=== PATIENT | female | born 1985 | race Caucasian/White ===

== ENCOUNTER 2017-08-28 15:50 | Emergency (ER) | payer OTHER ==
[2017-08-28] MEDS ORDERED: PROAIR HFA0.09 MG/AC IH (16:10)
[2017-08-28] MEDS ORDERED: ZITHROMAX 250M250 MG PO (16:10)
[2017-08-28 16:33] VITALS: BP 126/84
== END 2017-08-28 16:34 | disposition home or self-care (01) ==
LOC: ED 15:50
DX: J20.9 Acute bronchitis, unspecified (principal); F17.200 Nicotine dependence, unspecified, uncomplicated

== ENCOUNTER → 2017-09-18 | Day surgery (SDC) | payer OTHER ==
[2017-08-28 16:33] VITALS: BP 126/84
[~2017-09-18] MED LIST: PROAIR HFA0.09 MG/AC IH; ZITHROMAX 250M250 MG PO
== END ==
LOC: MSO 07:22
DX: R68.81 Early satiety (principal); R10.12 Left upper quadrant pain; J45.909 Unspecified asthma, uncomplicated; F17.210 Nicotine dependence, cigarettes, uncomplicated
CPT/HCPCS: 00731; J2704; J7120

== ENCOUNTER → 2017-09-21 | Outpatient (CLI) | payer OTHER ==
[2017-08-28 16:33] VITALS: BP 126/84
== END ==
LOC: RAD 09:10
DX: R10.2 Pelvic and perineal pain (principal)

== ENCOUNTER → 2018-06-18 | Outpatient (CLI) | payer SELFPAY | LOC: RAD 07:06 | DX: N64.53 Retraction of nipple (principal) ==

== ENCOUNTER → 2019-09-16 | Outpatient (CLI) | payer BC | LOC: LAB 12:48 | DX: M79.10 Myalgia, unspecified site (principal); J02.9 Acute pharyngitis, unspecified; R05 Cough; R06.02 Shortness of breath; Z20.828 Contact with and (suspected) exposure to other viral communicable diseases ==

== ENCOUNTER 2019-10-14 16:43 | Emergency (ER) | payer BC ==
[~2019-10-14] VITALS: Ht 170.2 cm; Wt 77.3 kg
[2019-10-14 18:55] LABS: HEMATOCRIT 41.2 % (37.0-47.0); HEMOGLOBIN 13.5 g/dL (12.5-16.0); MEAN CELL VOLUME 91 fl (78-100); MEAN CORPUSCULAR HEMOGLOBIN 30 pg (27-31); MEAN CORPUSCULAR HGB CONC 33 g/dL (33-37); PLATELET COUNT 174 K/mm3 (130-400); RED BLOOD COUNT 4.54 M/mm3 (4.10-5.30); RED CELL DISTRIBUTION WIDTH 12.3 % (11.5-14.5); WHITE BLOOD COUNT 4.7 K/mm3 (4.8-10.8)
[2019-10-14 19:03] LABS: ALBUMIN 4.5 g/dL (3.5-5.0); BAND 4 % (0-10); LYMPHOCYTE 13 % (20-51); MONOCYTE 14 % (3-10); NEUTROPHILS 65 % (42-75); POTASSIUM 3.6 mmol/L (3.5-5.1)
[2019-10-14 19:04] LABS: CALCIUM 9.4 mg/dL (8.3-10.5)
[2019-10-14 19:06] LABS: TOTAL PROTEIN 7.7 g/dL (6.4-8.3)
[2019-10-14 19:07] LABS: TOTAL BILIRUBIN 0.3 mg/dL (0.2-1.2)
[2019-10-14 19:11] LABS: D-DIMER 0.1 mg/L FEU (0.15-0.50); PARTIAL THROMBOPLASTIN TIME 22.3 SECONDS (21.0-32.0); PROTHROMBIN TIME 9.5 SECONDS (9.0-12.0)
[2019-10-14 19:34] LABS: URINE APPEARANCE CLEAR; URINE BILIRUBIN NEGATIVE (NEGATIVE); URINE BLOOD NEGATIVE (NEGATIVE); URINE COLOR YELLOW; URINE GLUCOSE NEGATIVE (NEGATIVE); URINE KETONE NEGATIVE (NEGATIVE); URINE LEUKOCYTE ESTERASE NEGATIVE (NEGATIVE); URINE NITRATE NEGATIVE (NEGATIVE); URINE PROTEIN(semi-quant) TRACE mg/dL (NEGATIVE); URINE UROBILINOGEN NORMAL (NORMAL); URINE WBC 0-1 /hpf (0-3)
[2019-10-14] MEDS ORDERED: PREDNISONE20 MG PO ×2 (20:56→20:58)
[2019-10-14] MEDS ORDERED: AZITHROMYCIN 250MGPK PO (20:57)
[2019-10-14 21:27] VITALS: BP 131/85
== END 2019-10-14 21:30 | disposition home or self-care (01) ==
LOC: ED 16:43
PROVIDERS: Nurse Practitioner
DX: U07.1 COVID-19 (principal); F17.210 Nicotine dependence, cigarettes, uncomplicated; Z90.89 Acquired absence of other organs

== ENCOUNTER 2019-10-28 21:56 | Emergency (ER) | payer BC ==
[~2019-10-28] VITALS: Ht 170.2 cm; Wt 80.8 kg
[~2019-10-28 21:56] MED LIST changes: +AZITHROMYCIN 250MGPK PO; +PREDNISONE20 MG PO
[2019-10-28 22:34] LABS: EOS # 0.1 (0.04-0.40); EOS % 1.6 % (1.0-5.0); HEMATOCRIT 38.7 % (37.0-47.0); HEMOGLOBIN 12.7 g/dL (12.5-16.0); LYMPH# 2.3 (1.50-4.00); MEAN CELL VOLUME 90 fl (78-100); MEAN CORPUSCULAR HEMOGLOBIN 30 pg (27-31); MEAN CORPUSCULAR HGB CONC 33 g/dL (33-37); MEAN PLATELET VOLUME 11.7 fl (7.4-10.4); MONO # 0.7 (0.20-0.80); NEU # 4.3 (1.40-6.50); PLATELET COUNT 206 K/mm3 (130-400); RED BLOOD COUNT 4.31 M/mm3 (4.10-5.30); RED CELL DISTRIBUTION WIDTH 11.8 % (11.5-14.5); WHITE BLOOD COUNT 7.4 K/mm3 (4.8-10.8)
[2019-10-28 22:44] LABS: ALBUMIN 4.2 g/dL (3.5-5.0)
[2019-10-28 22:45] LABS: POTASSIUM 3.3 mmol/L (3.5-5.1)
[2019-10-28 22:46] LABS: CALCIUM 8.9 mg/dL (8.3-10.5)
[2019-10-28 22:47] LABS: TOTAL PROTEIN 7.1 g/dL (6.4-8.3)
[2019-10-28 22:49] LABS: TOTAL BILIRUBIN 0.6 mg/dL (0.2-1.2)
[2019-10-28] MEDS ORDERED: ZOFRAN4 M2 PO (22:53)
[2019-10-28 23:03] LABS: D-DIMER 0.19 mg/L FEU (0.15-0.50); PARTIAL THROMBOPLASTIN TIME 22.3 SECONDS (21.0-32.0); PROTHROMBIN TIME 9.8 SECONDS (9.0-12.0)
[2019-10-29 01:00] VITALS: BP 118/77
== END 2019-10-29 01:00 | disposition home or self-care (01) ==
LOC: ED 21:56
PROVIDERS: Nurse Practitioner
DX: R07.9 Chest pain, unspecified (principal); J45.909 Unspecified asthma, uncomplicated; Z87.891 Personal history of nicotine dependence; Z86.19 Personal history of other infectious and parasitic diseases
CPT/HCPCS: J1885

== ENCOUNTER → 2020-07-08 | Outpatient (CLI) | payer BC ==
[~2020-07-08] MED LIST changes: +ZOFRAN4 M2 PO
== END ==
LOC: MAMMO 15:15
DX: Z12.31 Encounter for screening mammogram for malignant neoplasm of breast (principal)

== ENCOUNTER 2021-03-16 12:22 | Emergency (ER) | payer SELFPAY ==
[2021-03-16] MEDS ORDERED: METOPROLOL SUCC50 M1 PO (12:45)
[2021-03-16] MEDS ORDERED: ZOLOFT 50MG50 MG PO (12:46)
[2021-03-16] MEDS ORDERED: ESTARYLLA 35 MC1 TAB PO (12:46)
[2021-03-16 13:45] LABS: HEMATOCRIT 39.2 % (37.0-47.0); HEMOGLOBIN 12.8 g/dL (12.5-16.0); MEAN PLATELET VOLUME 12.9 fl (7.4-10.4); RED BLOOD COUNT 4.32 M/mm3 (4.10-5.30); RED CELL DISTRIBUTION WIDTH 11.9 % (11.5-14.5); WHITE BLOOD COUNT 5.3 K/mm3 (4.8-10.8)
[2021-03-16 13:49] LABS: ALBUMIN 4.1 g/dL (3.5-5.0); POTASSIUM 3.6 mmol/L (3.5-5.1); SODIUM 137 mmol/L (136-145)
[2021-03-16 13:50] LABS: CALCIUM 9.3 mg/dL (8.3-10.5)
[2021-03-16 13:51] LABS: GLUCOSE 93 mg/dL (65-105)
[2021-03-16 13:52] LABS: TOTAL PROTEIN 6.8 g/dL (6.4-8.3)
[2021-03-16 13:53] LABS: CARBON DIOXIDE 23 mmol/L (22-29); TOTAL BILIRUBIN 0.8 mg/dL (0.2-1.2)
[2021-03-16 13:57] LABS: AST-SGOT 15 U/L (5-34)
[2021-03-16 13:58] LABS: ALT/SGPT 11 U/L (0-55)
[2021-03-16 14:08] LABS: TROPONIN-I < 0.03 ng/mL (<0.030)
[2021-03-16] MEDS ORDERED: CYCLOBENZAPRINE10 M1 PO (14:32)
[2021-03-16 14:50] VITALS: BP 120/77
== END 2021-03-16 15:07 | disposition home or self-care (01) ==
LOC: ED 12:22
PROVIDERS: Nurse Practitioner
DX: M62.838 Other muscle spasm (principal); M43.6 Torticollis; F41.9 Anxiety disorder, unspecified; J45.909 Unspecified asthma, uncomplicated; F32.A Depression, unspecified; Z86.16 Personal history of COVID-19; Z79.899 Other long term (current) drug therapy
CPT/HCPCS: J1885; J3360

== ENCOUNTER 2021-07-16 10:07 | Emergency (ER) | payer OTHER ==
[~2021-07-16] VITALS: Ht 172.7 cm; Wt 79.4 kg
[~2021-07-16 10:07] MED LIST changes: +CYCLOBENZAPRINE10 M1 PO; +ESTARYLLA 35 MC1 TAB PO; +METOPROLOL SUCC50 M1 PO; +ZOLOFT 50MG50 MG PO
[2021-07-16 10:23] VITALS: BP 138/78
== END 2021-07-16 11:15 | disposition home or self-care (01) ==
LOC: ED 10:07
DX: S61.213A Laceration without foreign body of left middle finger without damage to nail, initial encounter (principal); W26.9XXA Contact with unspecified sharp object(s), initial encounter; Y92.090 Kitchen in other non-institutional residence as the place of occurrence of the external cause; Y99.0 Civilian activity done for income or pay
CPT/HCPCS: 90714

== ENCOUNTER 2023-10-07 11:58 | Emergency (ER) | payer SELFPAY ==
[~2023-10-07] VITALS: Ht 170.2 cm; Wt 88.5 kg
[2023-10-07 13:16] LABS: BASO # 0.05 K/mm3 (0.02-0.10); EOS # 0.21 K/mm3 (0.04-0.40); EOS % 3.4 % (1.0-5.0); HEMATOCRIT 38.5 % (37.0-47.0); HEMOGLOBIN 12.7 g/dL (12.5-16.0); LYMPH# 1.34 K/mm3 (1.50-4.00); MEAN CELL VOLUME 91 fl (78-100); MEAN CORPUSCULAR HEMOGLOBIN 30 pg (27-31); MEAN CORPUSCULAR HGB CONC 33 g/dL (33-37); MONO # 0.45 K/mm3 (0.20-0.80); NEU # 4.15 K/mm3 (1.40-6.50); PLATELET COUNT 172 K/mm3 (130-400); RED BLOOD COUNT 4.23 M/mm3 (4.10-5.30); RED CELL DISTRIBUTION WIDTH 12.1 % (11.5-14.5); WHITE BLOOD COUNT 6.2 K/mm3 (4.8-10.8)
[2023-10-07 13:23] LABS: ALBUMIN 3.9 g/dL (3.5-5.0)
[2023-10-07 13:24] LABS: SODIUM 140 mmol/L (136-145)
[2023-10-07 13:25] LABS: CALCIUM 8.8 mg/dL (8.3-10.5)
[2023-10-07 13:26] LABS: GLUCOSE 89 mg/dL (65-105); TOTAL PROTEIN 6.1 g/dL (6.4-8.3)
[2023-10-07 13:27] LABS: CARBON DIOXIDE 23 mmol/L (22-29)
[2023-10-07 13:28] LABS: TOTAL BILIRUBIN 0.5 mg/dL (0.2-1.2)
[2023-10-07 13:31] LABS: AST-SGOT 15 U/L (5-34)
[2023-10-07 13:33] LABS: ALT/SGPT 8 U/L (0-55)
[2023-10-07 13:39] LABS: TROPONIN-I < 0.030 ng/mL (0.00-0.033)
[2023-10-07] MEDS ORDERED: METOPROLOL SUCC50 M1 PO (14:29)
[2023-10-07 14:50] VITALS: BP 116/79
== END 2023-10-07 14:52 | disposition home or self-care (01) ==
LOC: ED 11:58
PROVIDERS: Family Medicine
DX: R00.2 Palpitations (principal); R07.89 Other chest pain; Z86.79 Personal history of other diseases of the circulatory system